=== PATIENT | female | born 1980 | race Hispanic/Latino ===

== ENCOUNTER 2020-10-06 19:34 | Emergency (ER) | payer OTHER ==
[~2020-10-06] VITALS: Ht 157.5 cm; Wt 62.7 kg
[~2020-10-06 19:34] MED LIST: BENTYL10 MG PO; DIFLUCAN150 MG PO; NAPROXEN500 MG PO; NEXIUM40 M1 PO
[2020-10-06 20:02] LABS: URINE BILIRUBIN - DIPSTICK NEGATIVE (NEGATIVE); URINE BLOOD DIPSTICK LARGE (NEGATIVE); URINE GLUCOSE - DIPSTICK NEGATIVE (NEGATIVE); URINE KETONE NEGATIVE (NEGATIVE); URINE NITRITE - DIPSTICK NEGATIVE (Negative); URINE PH 6.5 (4.5-8.0); URINE PROTEIN - DIPSTICK NEGATIVE (NEG-TRACE); URINE UROBILINOGEN - DIPSTICK 0.2 E.U./dL (0.2)
[2020-10-06 20:03] LABS: URINE COLOR PINK; URINE LEUK ESTERASE SMALL (NEGATIVE)
[2020-10-06 20:06] LABS: URINE SQUAMOUS EPITHELIAL CELL FEW EPI/hpf (0-FEW)
[2020-10-06] MEDS ORDERED: CEPHALEXIN500 MG PO (20:08)
[2020-10-06] MEDS ORDERED: PYRIDIUM200 MG PO (20:08)
[2020-10-06 20:20] VITALS: BP 158/84
== END 2020-10-06 20:20 | disposition home or self-care (01) | DRG 690 ==
LOC: ED 19:34
PROVIDERS: Emergency Medicine
DX: N39.0 Urinary tract infection, site not specified (principal)

== ENCOUNTER 2021-02-12 18:07 | Emergency (ER) | payer OTHER ==
[~2021-02-12] VITALS: Ht 157.5 cm; Wt 65.0 kg
[~2021-02-12 18:07] MED LIST changes: +CEPHALEXIN500 MG PO; +PYRIDIUM200 MG PO
[2021-02-12 19:00] VITALS: BP 150/79
[2021-02-12] MEDS ORDERED: VENTOLIN HFA IN (19:01)
== END 2021-02-12 19:12 | disposition home or self-care (01) | DRG 179 ==
LOC: ED 18:07
DX: U07.1 COVID-19 (principal)

== ENCOUNTER 2021-07-18 23:59 | Emergency (ER) | payer OTHER ==
[~2021-07-18] VITALS: Ht 157.5 cm; Wt 68.0 kg
[~2021-07-18 23:59] MED LIST changes: +VENTOLIN HFA IN
[2021-07-19 01:09] LABS: HEMATOCRIT 40.2 % (37.0-47.0); HEMOGLOBIN 13.2 g/dl (12.0-16.0); IMMATURE GRANULOCYTES 0.9 % (0.0-5.0); MEAN CELL VOLUME 92.2 fL CALC (80.0-100.0); MEAN CORPUSCULAR HGB 30.3 pG CALC (26.0-32.0); MEAN CORPUSCULAR HGB CONC 32.8 g/dL CAL (32.0-36.0); NEUT# 6.59 thou/uL (2.00-7.15); RED BLOOD COUNT 4.36 mill/uL (4.20-5.60); RED CELL DISTRI WIDTH 13.7 % (11.5-15.5)
[2021-07-19 01:23] LABS: ALBUMIN 4.8 g/dL (3.2-5.0); ALKALINE PHOSPHATASE 86 u/l (38-126); ANION GAP 12 (6-22 (CALC)); BILIRUBIN, TOTAL 0.5 mg/dL (0.0-1.4); BUN 10 mg/dL (7-17); BUN/CREATININE RATIO 17 (12-20 (CALC)); CARBON DIOXIDE 31 mmol/l (22-30); CHLORIDE 101 mmol/l (95-108); CREATININE 0.6 mg/dL (0.5-1.0); GFR > 60 ML/MIN (>=60 (CALC)); GFR FOR AFR.AMER. > 60 ML/MIN (>=60 (CALC)); SGOT/AST 27 u/l (14-36); SODIUM 141 mmol/l (137-146); TOTAL PROTEIN 8.7 g/dL (6.3-8.2)
[2021-07-19 01:25] LABS: POTASSIUM 3.4 mmol/l (3.5-5.1)
[2021-07-19 01:34] LABS: MYOGLOBIN 20 ng/mL (0 - 62)
[2021-07-19 03:20] VITALS: BP 104/62
== END 2021-07-19 03:18 | disposition home or self-care (01) | DRG 313 ==
LOC: ED 23:59
PROVIDERS: Emergency Medicine
DX: R07.89 Other chest pain (principal)

== ENCOUNTER 2024-05-14 10:55 | Emergency (ER) | payer OTHER ==
[2024-05-14] VITALS (7 sets, daily range): BP systolic 103–163; BP diastolic 50–94
[~2024-05-14] VITALS: Ht 157.5 cm; Wt 62.6 kg
[~2024-05-14 10:55] MED LIST changes: +MACROBID100 M1 PO; +MOTRIN800 MG PO
[2024-05-14 11:34] LABS: BASO% 0.6 % (0-3); EOS% 2.2 % (0-8); HEMATOCRIT 39.7 % (37.0-47.0); HEMOGLOBIN 13.1 g/dl (12.0-16.0); IMMATURE GRANULOCYTES 0.3 % (0.0-5.0); LYMPH% 33.6 % (15-41); MEAN CELL VOLUME 92.1 fL CALC (80.0-100.0); MEAN CORPUSCULAR HGB 30.4 pG CALC (26.0-32.0); MONO% 6.2 % (2-13); NEUT# 3.62 thou/uL (2.00-7.15); NEUT% 57.1 % (42-76); RED BLOOD COUNT 4.31 mill/uL (4.20-5.60); RED CELL DISTRI WIDTH 13.5 % (11.5-15.5)
[2024-05-14 11:46] LABS: ESTIMATED GFR 115 ML/MIN (>=90 (CALC))
[2024-05-14 11:50] LABS: ALBUMIN 4.6 g/dL (3.2-5.0); CREATININE 0.6 mg/dL (0.5-1.0); POTASSIUM 3.9 mmol/l (3.5-5.1); TOTAL PROTEIN 7.8 g/dL (6.3-8.2)
[2024-05-14] MEDS ORDERED: MAGNESIUM SULFATE HEPTAHYDRATE 50 ML IV ONE (11:50)
[2024-05-14] MEDS ORDERED: ACETAMINOPHEN 325 MG/TAB PO ONE (11:50)
[2024-05-14 11:51] LABS: BILIRUBIN, TOTAL 0.6 mg/dL (0.02-1.3)
[2024-05-14] MEDS ORDERED: METOCLOPRAMIDE HCL 10 MG/2 ML SDV IV ONE (11:55)
[2024-05-14] MEDS ORDERED: DiphenhydrAMINE HCL 50 MG/ML SDV IV ONE (11:55)
[2024-05-14 11:59] LABS: CALCULATED LDLCHOLESTEROL 112 mg/dL (62-129 (CALC)); CHOLESTEROL HDL RATIO 5.9 (<4.4 (CALC)); HDL CHOLESTEROL 33 mg/dL (39.0-59.0); TOTAL CHOLESTEROL 196 mg/dl (0-199); TOTAL TRIGLYCERIDES 251 mg/dl (0-149); VLDL CHOLESTROL 50 mg/dl (1-41 (CALC))
[2024-05-14 12:06] LABS: PROTHROMBIN TIME 9.6 SECONDS (9.0-12.5)
[2024-05-14] MEDS ORDERED: MOTRIN800 MG PO (13:53)
== END 2024-05-14 14:21 | disposition home or self-care (01) | DRG 103 ==
LOC: ED 10:55
PROVIDERS: Family Medicine
DX: G43.909 Migraine, unspecified, not intractable, without status migrainosus (principal)
CPT/HCPCS: J3475